=== PATIENT | male | born 1940 | race Caucasian/White ===

== ENCOUNTER 2021-04-24 06:24 | Inpatient (IN) | payer MEDICARE, OTHER ==
[~2021-04-24] VITALS: Ht 162.6 cm; Wt 71.3 kg
--- NOTE | 2021-04-24 06:56 | ED.ADGEN ---
General Adult EDM: Chief Complaint: NEAR SYNCOPE HPI: HPI: Patient is a 80 year old male brought in by EMS after being found laying face down the hallway by staff at his assisted living facility. 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 Patient says nothing hurts via handwriting was unable to answer the last thing he remembers what caused him to fall. Patient is currently taking Eliquis. Per EMS he was at last week but for unknown reason. History of provided by daughter:. Patient has a defibrillator/pacemaker that was placed in 2010 has 1.5 years left on the battery. Patient is a DNR. Patient was returned to his assisted living facility yesterday after staying at and being in rehab after falls due to decreased blood sugar levels. Patient has a history of renal insufficiency and saw his ratings analyst last week. He has a history of ND and multiple strokes greater than 10 years ago. Also is a history of heart failure. 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 Patient is fully vaccinated against COVID-19 Review of Systems: Review of Systems: All other systems within normal limits except for as noted in the HPI Current Medications: Current Medications Medications (Trade) Dose Ordered Sig/Christal Start Time Stop Time Status Last Admin Dose Admin Ondansetron HCl (Zofran) 4 mg 1X ONCE 04/24/21 07:00 04/24/21 07:02 DC 04/24/21 07:38 4 MG Sodium Chloride 1,000 ml @ 1,000 mls/hr 1X ONCE 04/24/21 07:00 04/24/21 07:59 DC 04/24/21 07:38 1,000 MLS/HR Allergies: Allergies: Allergies Coded Allergies Type Severity Reaction Last Updated Verified No Known Drug Allergies 04/24/21 No Physical Exam: PE: Constitutional: Well developed, well nourished, no acute distress, non-toxic appearance. [] HENT: Normocephalic, atraumatic, bilateral external ears normal, nose normal. [] Eyes: PERRLA, conjunctiva normal, no discharge. [] Neck: No rigidity, supple, no stridor. [] Cardiovascular: Regular rate and rhythm, brisk cap refill [] Lungs & Thorax: Non labored symmetric respirations, no tachypnea or respiratory distress [] Abdomen: Soft, nondistended. Skin: Warm, dry, no erythema, no rash. [] Back: Unremarkable Extremities: No deformities, range of motion grossly intact, no lower extremity edema [] Neurologic: Alert and following command, aphasia, no focal deficits noted. [] Psychologic: Affect normal, judgement normal, mood normal. [] Current Patient Data: Labs: Laboratory Tests Test 04/24/21 06:40 White Blood Count 7.7 x10^3/uL (4.0-11.0) Red Blood Count 5.45 x10^6/uL (4.30-5.70) Hemoglobin 14.8 g/dL (13.0-17.5) Hematocrit 45.6 % (39.0-53.0) Mean Corpuscular Volume 84 fL (79-100) Mean Corpuscular Hemoglobin 27 pg (25-35) Mean Corpuscular Hemoglobin Concent 33 g/dL (31-37) Red Cell Distribution Width 16.1 % (11.5-14.5) H Platelet Count 132 x10^3/uL (140-400) L Neutrophils (%) (Auto) 60 % (31-73) Lymphocytes (%) (Auto) 26 % (24-48) Monocytes (%) (Auto) 11 % (0-9) H Eosinophils (%) (Auto) 1 % (0-3) Basophils (%) (Auto) 1 % (0-3) Neutrophils # (Auto) 4.7 x10^3/uL (1.8-7.7) Lymphocytes # (Auto) 2.0 x10^3/uL (1.0-4.8) Monocytes # (Auto) 0.9 x10^3/uL (0.0-1.1) Eosinophils # (Auto) 0.1 x10^3/uL (0.0-0.7) Basophils # (Auto) 0.1 x10^3/uL (0.0-0.2) Prothrombin Time 18.3 SEC (11.7-14.0) H Prothrombin Time INR 1.5 (0.8-1.1) H Sodium Level 136 mmol/L (136-145) Potassium Level 4.2 mmol/L (3.5-5.1) Chloride Level 103 mmol/L (98-107) Carbon Dioxide Level 19 mmol/L (21-32) L Anion Gap 14 (6-14) Blood Urea Nitrogen 27 mg/dL (8-26) H Creatinine 2.0 mg/dL (0.7-1.3) H Estimated GFR (Cockcroft-Gault) 32.3 BUN/Creatinine Ratio 14 (6-20) Glucose Level 277 mg/dL (70-99) H Lactic Acid Level 4.0 mmol/L (0.4-2.0) *H Calcium Level 9.4 mg/dL (8.5-10.1) Phosphorus Level 4.7 mg/dL (2.6-4.7) Magnesium Level 2.2 mg/dL (1.8-2.4) Total Bilirubin 0.6 mg/dL (0.2-1.0) Aspartate Amino Transferase (AST) 34 U/L (15-37) Alanine Aminotransferase (ALT) 38 U/L (16-63) Alkaline Phosphatase 94 U/L (46-116) Creatine Kinase 52 U/L (39-308) Myoglobin 96 ng/mL (16-96) Troponin I Quantitative 0.060 ng/mL (0.000-0.055) MA-Mfa-H-Type Natriuretic Peptide 88372 pg/mL (0-449) H Total Protein 7.0 g/dL (6.4-8.2) Albumin 3.4 g/dL (3.4-5.0) Albumin/Globulin Ratio 0.9 (1.0-1.7) L Laboratory Tests 04/24/21 06:40 Laboratory Tests 04/24/21 06:40 Vital Signs: Vital Signs Date Time Temp Pulse Resp B/P (MAP) Pulse Ox O2 Delivery O2 Flow Rate FiO2 04/24/21 07:46 97.8 97.8 04/24/21 06:41 103 19 124/66 (85) 97 EKG: EKG: Wide-complex paced rhythm with a heart rate of 104. [] Heart Score: C/O Chest Pain: No HEART Score for Chest Pain: HEART Score for Chest Pain Response (Comments) Value History Slighlty/Non-Suspicious 0 ECG Nonspecific Repolarizatio 1 Age > 65 2 Risk Factors >3 Risk Factors or Hx CAD 2 Troponin >1-<3x Normal Limit 1 Total 6 Risk Factors: Risk Factors: DM, Current or recent (<one month) smoker, HTN, HLP, family history of CAD, obesity. Risk Scores: Score 0 - 3: 2.5% MACE over next 6 weeks - Discharge Home Score 4 - 6: 20.3% MACE over next 6 weeks - Admit for Clinical Observation Score 7 - 10: 72.7% MACE over next 6 weeks - Early Invasive Strategies Radiology/Procedures: Radiology/Procedures: [facility] [address] [place] [address] IMAGING REPORT Signed PATIENT: MAUREEN SAM ACCOUNT: [id number] : 1940 LOCATION: ER AGE: 80 SEX: M EXAM STATUS: REG ER ORD. PHYSICIAN: ARNALDO ROCK MD REASON: FALL, POOR HISTORIAN PROCEDURE: PELVIS Exam performed: One view chest and one view pelvis. HISTORY: Fall. DATE OF SERVICE: 04/24/2021. COMPARISON: None available Findings and impression: Single AP supine portable view chest is obtained. Apparent cardiomegaly and central vascular congestion may be accentuated due to supine position. There is a bipolar pacemaker in place. Lungs are well-expanded and clear. No focal infiltrates, effusion or pneumothorax seen. Bones are grossly normal. Single AP view pelvis demonstrates normal alignment of both hip and sacroiliac joints. There is apparent foreshortening of the right femoral neck perhaps positional. There is no acute fracture or dislocation.If there is a concern for fracture, evaluation with CT may be obtained. Nonspecific bowel gas pattern seen. Electronically signed by: Layne Brennan MD (04/24/2021 7:50 AM) [id number] DICTATED and SIGNED BY: LAYNE BRENNAN MD DATE: 04/24/21 [id number] 0 [][facility] [id number] [place] [address] IMAGING REPORT Signed PATIENT: MAUREEN SAM ACCOUNT: [id number] : 1940 LOCATION: ER AGE: 80 SEX: M EXAM STATUS: PRE ER ORD. PHYSICIAN: ARNALDO ROCK MD REASON: FALL, POOR HISTORIAN PROCEDURE: CT HEAD AND CERVICAL SPINE WO CT head without contrast. CT cervical spine without contrast PQRS statement: CT scans at this facility use dose reduction including either automated exposure control, iterative reconstructions, and /or weight based radiation dosing via mA and kV modification when appropriate to reduce radiation dose to as low as reasonably achievable. HISTORY: Fall injury, pain, poor historian. CT head findings: There is mild generalized brain atrophy. Calcified plaque intracranial arteries. No intracranial hemorrhage, mass, hydrocephalus, extra- axial fluid collections or infarction. Orbits, mastoids and bones are unremarkable. IMPRESSION: No acute intracranial abnormality. CT cervical spine findings: Craniocervical junction intact. Cervical vertebral body height and alignment intact. No fracture of the cervical spine. Multilevel cervical disc height loss, soft disc protrusions and disc osteophytes and uncovertebral facet spurring with multilevel spinal canal and neural foraminal stenoses. Lung apices and paraspinal tissues are unremarkable. IMPRESSION: No acute osseous injury of the cervical spine. Cervical disc disease. As described above. Electronically signed by: Rio Slaughter MD (04/24/2021 7:36 AM) [id number] DICTATED and SIGNED BY: RIO SLAUGHTER MD DATE: 04/24/21 [id number] 0 Course & Med Decision Making: Course & Med Decision Making Pertinent Labs and Imaging studies reviewed. (See chart for details) Patient with slightly elevated troponin, on repeat troponin went up to 0.7, discussed Dr. Lawrence will hold heparin at this time and trend troponins. Hospitalist notified and will start heparin [] Dragon Disclaimer: Ernestine Disclaimer: This electronic medical record was generated, in whole or in part, using a voice recognition dictation system. Departure Departure Impression: Primary Impression: Fall Additional Impressions: Hypothermia Lactic acidosis NSTEMI (non-ST elevated myocardial infarction) Disposition: ADMITTED INPATIENT Admitting Physician: EVERTON Condition: CRITICAL Problem Qualifiers ARNALDO ROCK MD Apr 24, 2021 06:56
[2021-04-24] MEDS ORDERED: ONDANSETRON PF 4 MG/2 ML VIAL. IVP ONE (07:00)
[2021-04-24] MEDS ORDERED: IV NORMAL SALINE 1000ML BAG 1,000 ML IV ONE (07:00)
[2021-04-24 07:14] LABS: CALCIUM 9.4 mg/dL (8.5-10.1); GFR 32.3; POTASSIUM 4.2 mmol/L (3.5-5.1)
[2021-04-24 07:16] LABS: BASO # 0.1 x10^3/uL (0.0-0.2); BASO % 1 % (0-3); EOS # 0.1 x10^3/uL (0.0-0.7); EOS % 1 % (0-3); HEMATOCRIT 45.6 % (39.0-53.0); HEMOGLOBIN 14.8 g/dL (13.0-17.5); LYMPH % 26 % (24-48); MEAN CORPUSCULAR HEMOGLOBIN 27 pg (25-35); MEAN CORPUSCULAR HGB CONC 33 g/dL (31-37); MEAN CORPUSCULAR VOLUME 84 fL (79-100); MONO # 0.9 x10^3/uL (0.0-1.1); MONO % 11 % (0-9); NEUT # 4.7 x10^3/uL (1.8-7.7); NEUT % 60 % (31-73); PLATELET COUNT 132 x10^3/uL (140-400); RED BLOOD COUNT 5.45 x10^6/uL (4.30-5.70); RED CELL DISTRIBUTION WIDTH 16.1 % (11.5-14.5); WHITE BLOOD COUNT 7.7 x10^3/uL (4.0-11.0)
[2021-04-24 07:17] LABS: ALBUMIN 3.4 g/dL (3.4-5.0); ALBUMIN/GLOBULIN RATIO 0.9 (1.0-1.7); MAGNESIUM 2.2 mg/dL (1.8-2.4); PHOSPHORUS 4.7 mg/dL (2.6-4.7); TOTAL BILIRUBIN 0.6 mg/dL (0.2-1.0)
[2021-04-24 07:27] LABS: PROTHROMBIN TIME PATIENT 18.3 SEC (11.7-14.0)
--- NOTE | 2021-04-24 07:38 | RAD ---
CT head without contrast. CT cervical spine without contrast PQRS statement: CT scans at this facility use dose reduction including either automated exposure cont rol, iterative reconstructions, and /or weight based radiation dosing via mA and kV modification when appropriate to reduce radiation dose to as low as reasonably achievable. HISTORY: Fall injury, pain, poor historian. CT head findings: There is mild generalized brain atrophy. Calcified plaque intracranial arteries. No intracranial hemorrhage, mass, hydrocephalus, extra-axial fluid collections or infarction. Orbits, m astoids and bones are unremarkable. IMPRESSION: No acute intracranial abnormality. CT cervical spine findings: Craniocervical junction intact. Cervical vertebral body height and alignm ent intact. No fracture of the cervical spine. Multilevel cervical disc height loss, soft disc protru sions and disc osteophytes and uncovertebral facet spurring with multilevel spinal canal and neural f oraminal stenoses. Lung apices and paraspinal tissues are unremarkable. IMPRESSION: No acute osseous injury of the cervical spine. Cervical disc disease. As described above. Electronically signed by: Jules Slaughter MD (04/24/2021 7:36 AM) [id number]
--- NOTE | 2021-04-24 07:53 | RAD ---
Exam performed: One view chest and one view pelvis. HISTORY: Fall. DATE OF SERVICE: 04/24/2021. COMPARISON: None available Findings and impression: Single AP supine portable view chest is obtained. Apparent cardiomegaly and central vascular congesti on may be accentuated due to supine position. There is a bipolar pacemaker in place. Lungs are well-e xpanded and clear. No focal infiltrates, effusion or pneumothorax seen. Bones are grossly normal. Single AP view pelvis demonstrates normal alignment of both hip and sacroiliac joints. There is appar ent foreshortening of the right femoral neck perhaps positional. There is no acute fracture or disloc ation.If there is a concern for fracture, evaluation with CT may be obtained. Nonspecific bowel gas pattern seen. Electronically signed by: Layne Brennan MD (04/24/2021 7:50 AM) [id number]
[2021-04-24] MEDS ORDERED: MORPHINE SULFATE 4 MG/ML INJ. IVP PRN (08:45)
[2021-04-24] MEDS ORDERED: ONDANSETRON PF 4 MG/2 ML VIAL. IVP PRN ×6 (08:45→09:15)
[2021-04-24] MEDS ORDERED: ACETAMINOPHEN 325 MG TABLET. PO PRN ×6 (08:45→09:15)
--- NOTE | 2021-04-24 09:03 | PDOC1 ---
History and Physical Date of Admission Date of Admission DATE: 04/24/21 TIME: 08:37 Identification/Chief Complaint Chief Complaint Fall Source Source: Caregiver, Chart review History of Present Illness History of Present Illness Patient is a 80-year-old male with past medical history DM2, HTN, history bipolar pacemaker, who presents to the ED after being found unresponsive in the hallway of his [facility]. Patient is deaf and hard of hearing, so much history is obtained through chart review. Upon EMS arrival he was hypothermic at 94.6 F and hypotensive with blood pressure 70/50 mmHg. Upon arrival in the ED there were no obvious injuries or deformities noted. He was treated with warming blankets with improvement. Labs on admission showed platelet 132, BUN 27, creatinine 2.0, CBG 277, lactic acid 4.0, troponin 0.060, BNP 15,364. Patient is on Eliquis and CT head/cervical spine showed no acute abnormality. Chest x-ray and hip x-ray showed apparent cardiomegaly with central vascular congestion, bipolar pacemaker in place, normal alignment of both hip and sacral joints, apparent shortening of the right femoral neck which is perhaps positional, no acute fracture or dislocation. Case was discussed with Dr. Rock in the ED, will obtain CT chest and abdomen given abnormal chest x-ray and history of blood thinner use. Discussed with daughter (DEXTER) who states that patient was recently discharged from to rehab after being treated for episodes of hypoglycemia. He had an ICD/pacemaker placed in 2010. Daughter notes history of "kidney problems ", PR with no stents, CVA, and she states he is fully vaccinated against COVID-19. She confirms that his CODE STATUS is DNR. Will admit patient for further medical management. Past Medical History Past Medical History DM2, HTN, hypothyroidism, HLD, CVA, pacemaker/defibrillator, CKD, PR Past Surgical History Past Surgical History Pacemaker/ICD Family History Family History: Hypertension Social History Smoke: No ALCOHOL: none Drugs: None Current Medications Current Medications Current Medications Sodium Chloride 1,000 ml @ 1,000 mls/hr 1X ONCE IV Last administered on 04/24/21at 07:38; Start 04/24/21 at 07:00; Stop 04/24/21 at 07:59; Status DC Ondansetron HCl (Zofran) 4 mg 1X ONCE IVP Last administered on 04/24/21at 07:38; Start 04/24/21 at 07:00; Stop 04/24/21 at 07:02; Status DC Allergies Allergies: Coded Allergies: No Known Drug Allergies (Unverified , 04/24/21) ROS Review of System Unable to obtain due to clinical condition Physical Exam Physical Exam General: Alert, Cooperative, No acute distress HEENT: PERRLA, EOMI Lungs: Clear to auscultation, Normal air movement Heart: Tachycardic, pacer/ICD the left chest wall Cardiovascular: S1, S2 Abdomen: Normal bowel sounds, Soft, No tenderness Extremities: No clubbing, No cyanosis. Left hand fingers 2 through 5 absent. Skin: No rashes, No significant lesion Neuro: Normal tone, Sensation intact Psych/Mental Status: Mental status NL, Mood NL Vitals Vitals Vital Signs Date Time Temp Pulse Resp B/P (MAP) Pulse Ox O2 Delivery O2 Flow Rate FiO2 04/24/21 07:46 97.8 97.8 04/24/21 06:41 103 19 124/66 (85) 97 Labs Labs Laboratory Tests Test 04/24/21 06:40 White Blood Count 7.7 x10^3/uL (4.0-11.0) Red Blood Count 5.45 x10^6/uL (4.30-5.70) Hemoglobin 14.8 g/dL (13.0-17.5) Hematocrit 45.6 % (39.0-53.0) Mean Corpuscular Volume 84 fL (79-100) Mean Corpuscular Hemoglobin 27 pg (25-35) Mean Corpuscular Hemoglobin Concent 33 g/dL (31-37) Red Cell Distribution Width 16.1 % (11.5-14.5) Platelet Count 132 x10^3/uL (140-400) Neutrophils (%) (Auto) 60 % (31-73) Lymphocytes (%) (Auto) 26 % (24-48) Monocytes (%) (Auto) 11 % (0-9) Eosinophils (%) (Auto) 1 % (0-3) Basophils (%) (Auto) 1 % (0-3) Neutrophils # (Auto) 4.7 x10^3/uL (1.8-7.7) Lymphocytes # (Auto) 2.0 x10^3/uL (1.0-4.8) Monocytes # (Auto) 0.9 x10^3/uL (0.0-1.1) Eosinophils # (Auto) 0.1 x10^3/uL (0.0-0.7) Basophils # (Auto) 0.1 x10^3/uL (0.0-0.2) Prothrombin Time 18.3 SEC (11.7-14.0) Prothromb Time International Ratio 1.5 (0.8-1.1) Sodium Level 136 mmol/L (136-145) Potassium Level 4.2 mmol/L (3.5-5.1) Chloride Level 103 mmol/L (98-107) Carbon Dioxide Level 19 mmol/L (21-32) Anion Gap 14 (6-14) Blood Urea Nitrogen 27 mg/dL (8-26) Creatinine 2.0 mg/dL (0.7-1.3) Estimated GFR (Cockcroft-Gault) 32.3 BUN/Creatinine Ratio 14 (6-20) Glucose Level 277 mg/dL (70-99) Lactic Acid Level 4.0 mmol/L (0.4-2.0) Calcium Level 9.4 mg/dL (8.5-10.1) Phosphorus Level 4.7 mg/dL (2.6-4.7) Magnesium Level 2.2 mg/dL (1.8-2.4) Total Bilirubin 0.6 mg/dL (0.2-1.0) Aspartate Amino Transf (AST/SGOT) 34 U/L (15-37) Alanine Aminotransferase (ALT/SGPT) 38 U/L (16-63) Alkaline Phosphatase 94 U/L (46-116) Creatine Kinase 52 U/L (39-308) Myoglobin 96 ng/mL (16-96) Troponin I Quantitative 0.060 ng/mL (0.000-0.055) DQ-Bsk-Z-Type Natriuretic Peptide 59668 pg/mL (0-449) Total Protein 7.0 g/dL (6.4-8.2) Albumin 3.4 g/dL (3.4-5.0) Albumin/Globulin Ratio 0.9 (1.0-1.7) Laboratory Tests Test 04/24/21 06:40 White Blood Count 7.7 x10^3/uL (4.0-11.0) Red Blood Count 5.45 x10^6/uL (4.30-5.70) Hemoglobin 14.8 g/dL (13.0-17.5) Hematocrit 45.6 % (39.0-53.0) Mean Corpuscular Volume 84 fL (79-100) Mean Corpuscular Hemoglobin 27 pg (25-35) Mean Corpuscular Hemoglobin Concent 33 g/dL (31-37) Red Cell Distribution Width 16.1 % (11.5-14.5) Platelet Count 132 x10^3/uL (140-400) Neutrophils (%) (Auto) 60 % (31-73) Lymphocytes (%) (Auto) 26 % (24-48) Monocytes (%) (Auto) 11 % (0-9) Eosinophils (%) (Auto) 1 % (0-3) Basophils (%) (Auto) 1 % (0-3) Neutrophils # (Auto) 4.7 x10^3/uL (1.8-7.7) Lymphocytes # (Auto) 2.0 x10^3/uL (1.0-4.8) Monocytes # (Auto) 0.9 x10^3/uL (0.0-1.1) Eosinophils # (Auto) 0.1 x10^3/uL (0.0-0.7) Basophils # (Auto) 0.1 x10^3/uL (0.0-0.2) Prothrombin Time 18.3 SEC (11.7-14.0) Prothromb Time International Ratio 1.5 (0.8-1.1) Sodium Level 136 mmol/L (136-145) Potassium Level 4.2 mmol/L (3.5-5.1) Chloride Level 103 mmol/L (98-107) Carbon Dioxide Level 19 mmol/L (21-32) Anion Gap 14 (6-14) Blood Urea Nitrogen 27 mg/dL (8-26) Creatinine 2.0 mg/dL (0.7-1.3) Estimated GFR (Cockcroft-Gault) 32.3 BUN/Creatinine Ratio 14 (6-20) Glucose Level 277 mg/dL (70-99) Lactic Acid Level 4.0 mmol/L (0.4-2.0) Calcium Level 9.4 mg/dL (8.5-10.1) Phosphorus Level 4.7 mg/dL (2.6-4.7) Magnesium Level 2.2 mg/dL (1.8-2.4) Total Bilirubin 0.6 mg/dL (0.2-1.0) Aspartate Amino Transf (AST/SGOT) 34 U/L (15-37) Alanine Aminotransferase (ALT/SGPT) 38 U/L (16-63) Alkaline Phosphatase 94 U/L (46-116) Creatine Kinase 52 U/L (39-308) Myoglobin 96 ng/mL (16-96) Troponin I Quantitative 0.060 ng/mL (0.000-0.055) IV-Dyn-O-Type Natriuretic Peptide 54917 pg/mL (0-449) Total Protein 7.0 g/dL (6.4-8.2) Albumin 3.4 g/dL (3.4-5.0) Albumin/Globulin Ratio 0.9 (1.0-1.7) Images Images PATIENT: MAUREEN SAM ACCOUNT: [id number] : 1940 LOCATION: ER AGE: 80 SEX: M EXAM STATUS: PRE ER ORD. PHYSICIAN: ARNALDO ROCK MD REASON: FALL, POOR HISTORIAN PROCEDURE: CT HEAD AND CERVICAL SPINE WO CT head without contrast. CT cervical spine without contrast PQRS statement: CT scans at this facility use dose reduction including either automated exposure control, iterative reconstructions, and /or weight based radiation dosing via mA and kV modification when appropriate to reduce radiation dose to as low as reasonably achievable. HISTORY: Fall injury, pain, poor historian. CT head findings: There is mild generalized brain atrophy. Calcified plaque intracranial arteries. No intracranial hemorrhage, mass, hydrocephalus, extra- axial fluid collections or infarction. Orbits, mastoids and bones are unr emarkable. IMPRESSION: No acute intracranial abnormality. CT cervical spine findings: Craniocervical junction intact. Cervical vertebral body height and alignment intact. No fracture of the cervical spine. Multilevel cervical disc height loss, soft disc protrusions and disc osteophytes and uncovertebral facet spurring with multilevel spinal canal and neural foraminal stenoses. Lung apices and paraspinal tissues are unremarkable. IMPRESSION: No acute osseous injury of the cervical spine. Cervical disc di sease. As described above. PATIENT: MAUREEN SAM ACCOUNT: [id number] : 1940 LOCATION: ER AGE: 80 SEX: M EXAM STATUS: REG ER ORD. PHYSICIAN: ARNALDO ROCK MD REASON: FALL, POOR HISTORIAN PROCEDURE: CHEST AP ONLY Exam performed: One view chest and one view pelvis. HISTORY: Fall. DATE OF SERVICE: 04/24/2021. COMPARISON: None available Findings and impression: Single AP supine portable view chest is obtained. Apparent cardiomegaly and central vascular congestion may be accentuated due to supine position. There is a bipolar pacemaker in place. Lungs are well-expanded and clear. No focal infiltrates, effusion or pneumothorax seen. Bones are grossly normal. Single AP view pelvis demonstrates normal alignment of both hip and sacroiliac joints. There is apparent foreshortening of the right femoral neck perhaps positional. There is no acute fracture or dislocation.If there is a concern for fracture, evaluation with CT may be obtained. Nonspecific bowel gas pattern seen. VTE Prophylaxis Ordered VTE Prophylaxis Devices: No VTE Pharmacological Prophylaxi: Yes Assessment/Plan Assessment/Plan NSTEMI Fall/near syncope Lactic acidosis Hypothermia Acute on chronic renal failure DM2 with hyperglycemia History CVA History PR Plan: During the course of my evaluation repeat troponin 0.716 Consultation placed to cardiology Discussed with Dr. Rock, will obtain CT chest and abdomen We will place order to have pacemaker interrogated Discussed with DPOA, she believes he may have gotten overzealous after recently being released from the hospital, tried to walk and had a fall in his detention. She states she is unsure why he is on Eliquis, but she presumes it is for his heart or history of strokes. Will provide judicious IV fluids and monitor kidney function given unknown baseline Follow-up reflex lactic acid Basal/prandial insulin Resume home medications FEN - Cardiac diet PPX - Eliquis DNR Dispo - inpatient for above Patient's daughter (Leeanna Martin) is surrogate decision-maker Justifications for Admission Other Justification ARUN EPPS MD Apr 24, 2021 09:03
[2021-04-24] MEDS ORDERED: DEXTROSE 50% 25 GM / 50ML DISP.SYRIN. IV PRN (09:15)
[2021-04-24] MEDS ORDERED: CALCIUM CARBONATE 500 MG TAB.CHEW PO PRN ×5 (09:15)
[2021-04-24] MEDS ORDERED: MAGNESIUM HYDROXIDE 2,400 MG/30 ML ORAL.SUSP. PO PRN ×5 (09:15)
[2021-04-24] MEDS ORDERED: MORPHINE SULFATE 2 MG/ML INJ. IV PRN ×5 (09:15)
[2021-04-24] MEDS ORDERED: HYDROcodone/APAP 5/325MG 1 TAB TABLET PO PRN ×5 (09:15)
[2021-04-24] MEDS ORDERED: MAG HYDROX/ALUMINUM HYD/SIMETH 30 ML ORAL.SUSP PO PRN ×5 (09:15)
--- NOTE | 2021-04-24 09:25 | RAD ---
INDICATION: Status post fall COMPARISON: None. TECHNIQUE: Axial CT images obtained through the chest, abdomen and pelvis without contrast. One or more of the following individualized dose reduction techniques were utilized for this examinat ion: 1. Automated exposure control; 2. Adjustment of the mA and/or kV according to patient size; 3 . Use of iterative reconstruction technique. FINDINGS: Small bilateral pleural effusion. Mild patchy groundglass and interstitial opacities. Severe calcific atherosclerosis of the coronary arteries and thoracic aorta. Pacemaker is seen. Small fluid in the pericardial recess which is a common finding. Pulmonary arteries prominent in size. For example main pulmonary arteries 41 mm. Multiple compression fractures are identified including mild T10, moderate T11, mild T12, mild to mod erate L1. Severe calcific atherosclerosis. Small fat-containing umbilical hernia. Small left-sided fat-containing inguinal hernia. Calcified granulomas of the liver and spleen. Gallbl adder is partially contracted with some mild indistinctness to the adjacent fat although this could b e from motion. No peripancreatic fluid collection. Atrophic kidneys. Bilateral low-density renal lesions are seen and may be cystic in nature but limited evaluation given lack of contrast. Cannot assess for a solid component on noncontrast imaging. Urinary bladder is partially distended. Colonic diverticulosis. No dilated loops of bowel to suggest obstruction. Degenerative changes of the spine. IMPRESSION: * Limited assessment of solid organ structures and vasculature given lack of intravenous contrast bu t no intra-abdominal or intrathoracic hemorrhage is identified. * Compression fractures are identified at T10, T11, T12 and L1 without comparison available for revi ew to assess whether these are chronic or acute. Would correlate with symptoms. * Mild interstitial and groundglass opacities bilaterally with small pleural effusions. This can be seen with mild edema with small airway inflammation from pneumonitis not excluded. * Severe atherosclerotic disease. Electronically signed by: Kamron Richmond MD (04/24/2021 9:23 AM) [id number]
[2021-04-24] MEDS: IV NORMAL SALINE 1000ML BAG 1,000 ML IV SCH ×2 (11:29→18:45)
[2021-04-24] MEDS: INSULIN LISPRO 300 UNITS/3 ML VIAL. SQ SCH ×2 (11:58→17:00)
--- NOTE | 2021-04-24 15:07 | EKG ---
[facility] [address] [place] [address] Test Date: 2021-04-24 Test Time: 07:33:54 Pat Name: MAUREEN SAM Department: Room: ED HOLD 2 Gender: M Respiratory Physician: = : 1940 Requested By: ARNALDO ROCK Order Number: [id number] Reading MD: Ez Lawrence Measurements Intervals [place] Rate: 104 P: WI: QRS: 196 QRSD: 48 T: 236 QT: 324 QTc: 426 Interpretive Statements VENTRICULAR PACED RHYTHM Electronically Signed On 04-28-2021 12:49:22 CDT by Ez Lawrence
[2021-04-24] MEDS ORDERED: HEPARIN for IV BOLUS 10,000 UNIT/10 ML VIAL. IV PRN ×2 (16:15→23:45)
[2021-04-24] MEDS ORDERED: HEPARIN 25,000UTS/250ML PREMIX 250 ML IV PRN (16:15)
[2021-04-24] MEDS ORDERED: ASPI-630 PO (18:59)
[2021-04-24] MEDS ORDERED: ATOR20TA58 PO (18:59)
[2021-04-24] MEDS ORDERED: APIX2.5T PO (19:01)
[2021-04-24] MEDS ORDERED: CARV25TA PO (19:01)
[2021-04-24] MEDS ORDERED: LEVO75TA5 PO (19:02)
[2021-04-24] MEDS ORDERED: FURO20TA3 PO (19:02)
[2021-04-24] MEDS ORDERED: LISI20TA18 PO (19:03)
[2021-04-24] MEDS ORDERED: POTA20TA4 PO (19:03)
[2021-04-24] MEDS ORDERED: LIRA0.6P2 SQ (19:04)
[2021-04-24] MEDS ORDERED: Vitamin D PO (19:07)
[2021-04-24] MEDS ORDERED: INSU100I27 SQ (19:08)
[2021-04-24] MEDS ORDERED: INSU100I17 SQ (19:09)
[2021-04-24 19:50] VITALS: BP 123/87
[2021-04-24] MEDS ORDERED: ATORVASTATIN CALCIUM 20 MG TABLET PO SCH (22:00)
[2021-04-24 23:45] VITALS: BP 102/67
[2021-04-24] MEDS: INSULIN GLARGINE SYRINGE. SQ SCH (23:47)
[2021-04-25 03:35] VITALS: BP 105/73
[2021-04-25] MEDS: IV NORMAL SALINE 1000ML BAG 1,000 ML IV SCH (04:45)
[2021-04-25 05:47] LABS: BASO % 0 % (0-3); EOS % 0 % (0-3); HEMATOCRIT 42.3 % (39.0-53.0); HEMOGLOBIN 13.8 g/dL (13.0-17.5); LYMPH # 1.5 x10^3/uL (1.0-4.8); LYMPH % 18 % (24-48); MEAN CORPUSCULAR HEMOGLOBIN 27 pg (25-35); MEAN CORPUSCULAR HGB CONC 33 g/dL (31-37); MEAN CORPUSCULAR VOLUME 84 fL (79-100); MONO # 0.8 x10^3/uL (0.0-1.1); MONO % 10 % (0-9); NEUT # 5.9 x10^3/uL (1.8-7.7); NEUT % 72 % (31-73); PLATELET COUNT 107 x10^3/uL (140-400); RED BLOOD COUNT 5.03 x10^6/uL (4.30-5.70); RED CELL DISTRIBUTION WIDTH 16.3 % (11.5-14.5); WHITE BLOOD COUNT 8.3 x10^3/uL (4.0-11.0)
[2021-04-25 06:08] LABS: ALBUMIN 3.1 g/dL (3.4-5.0); ALBUMIN/GLOBULIN RATIO 0.9 (1.0-1.7); CREATININE 1.7 mg/dL (0.7-1.3); POTASSIUM 3.9 mmol/L (3.5-5.1); TOTAL BILIRUBIN 0.6 mg/dL (0.2-1.0); TOTAL PROTEIN 6.4 g/dL (6.4-8.2)
[2021-04-25 07:00] VITALS: BP 121/76
[2021-04-25] MEDS: INSULIN LISPRO 300 UNITS/3 ML VIAL. SQ SCH ×4 (08:00→17:37)
[2021-04-25] MEDS: ASPIRIN CHEWABLE 81 MG TABLET. PO SCH (08:44)
[2021-04-25] MEDS: CARVEDILOL 12.5 MG TABLET. PO SCH ×2 (08:44→17:27)
[2021-04-25] MEDS: LEVOTHYROXINE 75 MCG TABLET PO SCH (08:45)
[2021-04-25] MEDS: POTASSIUM CHLORIDE 20 MEQ TABLET.ER. PO SCH (08:45)
[2021-04-25] MEDS: FUROSEMIDE 20 MG TABLET PO SCH (08:45)
[2021-04-25] MEDS: LISINOPRIL 20 MG TABLET PO SCH (08:45)
[2021-04-25 10:47] VITALS: BP 112/75
--- NOTE | 2021-04-25 12:12 | PDOC2 ---
DELPHINE JEFFERSON ELEMENTARY LIBRARIAN 04/25/21 1212: CARDIAC CONSULT DATE OF CONSULT Date of Consult DATE: 04/25/21 TIME: 12:09 REASON FOR CONSULT Reason for Consult: syncope CHF REFERRING PHYSICIAN Referring Physician: Dr. Brand SOURCE Source: Chart review, Patient HISTORY OF PRESENT ILLNESS HISTORY OF PRESENT ILLNESS This is an 80 yo male who presented form nursing facility secondary to being found down in hallway. Details of fall unknown. Patient presently denies falling and is unable to tell me what brought him into the ED. Troponin noted to be elevated, which prompted this consult. He denies any dizziness, diaphoresis, or chest pain. PAST MEDICAL HISTORY Cardiovascular: AFIB, CAD, CHF, HTN, Hyperlipidemia CENTRAL NERVOUS SYSTEM: CVA, Other ([facility] [facility]) Renal/: Chronic renal insuff, Other (urgency ) Endocrine: Diabetes, Hypothyroidism PAST SURGICAL HISTORY Past Surgical History: Pacemaker (AICD ) SOCIAL HISTORY ALCOHOL: none Drugs: None [facility] CURRENT MEDICATIONS CURRENT MEDICATIONS Current Medications Medications (Trade) Dose Ordered Sig/Christal Route PRN Reason Start Time Stop Time Status Last Admin Dose Admin Insulin Glargine (Lantus Syringe) 8 unit QHS SQ 04/24/21 21:00 04/24/21 23:47 Heparin Sodium/ Dextrose 250 ml @ 6 mls/hr CONT PRN IV PER PROTOCOL 04/24/21 16:15 04/24/21 23:45 DC 04/24/21 16:47 Heparin Sodium (Porcine) (Heparin Sodium) 1,250 unit PRN Q6HRS PRN IV FOR UFH LEVEL LESS THAN 0.2 04/24/21 16:15 04/24/21 23:45 DC 04/24/21 16:48 Aspirin (Aspirin Chewable) 81 mg DAILY08 PO 04/25/21 08:00 04/25/21 08:44 Atorvastatin Calcium (Lipitor) 20 mg HS PO 04/24/21 22:00 04/24/21 23:47 Furosemide (Lasix) 20 mg DAILY PO 04/25/21 09:00 04/25/21 08:45 Levothyroxine Sodium (Synthroid) 75 mcg DAILYAC PO 04/25/21 07:30 04/25/21 08:45 Lisinopril (Prinivil) 20 mg DAILY PO 04/25/21 09:00 04/25/21 08:45 Potassium Chloride (Klor-Con) 20 meq DAILY08 PO 04/25/21 08:00 04/25/21 08:45 Carvedilol (Coreg) 37.5 mg BIDWMEALS PO 04/25/21 08:00 04/25/21 08:44 ALLERGIES ALLERGIES: Coded Allergies: No Known Drug Allergies (Unverified , 04/24/21) ROS Review of System 14 point ROS conducted with pertinent positives noted above in hPI PHYSICAL EXAM General: Alert, Cooperative, No acute distress HEENT: Atraumatic Lungs: Clear to auscultation Heart: Regular rate Abdomen: Soft Extremities: No edema, Normal pulses Neuro: Normal speech, Sensation intact Psych/Mental Status: Mood NL MUSCULOSKELETAL: Osteoarthritic changes both hands VITALS/I&O VITALS/I&O: Vital Signs Date Time Temp Pulse Resp B/P (MAP) Pulse Ox O2 Delivery O2 Flow Rate FiO2 04/25/21 10:47 98.1 88 16 112/75 (87) 96 Nasal Cannula 2.0 98.1 I & O 04/24/21 04/24/21 04/25/21 15:00 23:00 07:00 Intake Total 1000 ml 580 ml 700 ml Output Total 100 ml 300 ml Balance 1000 ml 480 ml 400 ml LABS Lab: Laboratory Tests Test 04/24/21 14:40 04/24/21 17:10 04/24/21 21:15 04/24/21 21:41 Lactic Acid Level 1.5 mmol/L (0.4-2.0) Troponin I Quantitative 2.525 ng/mL (0.000-0.055) Glucose (Fingerstick) 165 mg/dL (70-99) H 144 mg/dL (70-99) H Activated Partial Thromboplast Time 66 SEC (24-38) H Test 04/25/21 05:14 04/25/21 07:32 04/25/21 11:20 White Blood Count 8.3 x10^3/uL (4.0-11.0) Red Blood Count 5.03 x10^6/uL (4.30-5.70) Hemoglobin 13.8 g/dL (13.0-17.5) Hematocrit 42.3 % (39.0-53.0) Mean Corpuscular Volume 84 fL (79-100) Mean Corpuscular Hemoglobin 27 pg (25-35) Mean Corpuscular Hemoglobin Concent 33 g/dL (31-37) Red Cell Distribution Width 16.3 % (11.5-14.5) H Platelet Count 107 x10^3/uL (140-400) L Neutrophils (%) (Auto) 72 % (31-73) Lymphocytes (%) (Auto) 18 % (24-48) L Monocytes (%) (Auto) 10 % (0-9) H Eosinophils (%) (Auto) 0 % (0-3) Basophils (%) (Auto) 0 % (0-3) Neutrophils # (Auto) 5.9 x10^3/uL (1.8-7.7) Lymphocytes # (Auto) 1.5 x10^3/uL (1.0-4.8) Monocytes # (Auto) 0.8 x10^3/uL (0.0-1.1) Eosinophils # (Auto) 0.0 x10^3/uL (0.0-0.7) Basophils # (Auto) 0.0 x10^3/uL (0.0-0.2) Activated Partial Thromboplast Time 59 SEC (24-38) H Sodium Level 141 mmol/L (136-145) Potassium Level 3.9 mmol/L (3.5-5.1) Chloride Level 107 mmol/L (98-107) Carbon Dioxide Level 25 mmol/L (21-32) Anion Gap 9 (6-14) Blood Urea Nitrogen 23 mg/dL (8-26) Creatinine 1.7 mg/dL (0.7-1.3) H Estimated GFR (Cockcroft-Gault) 39.0 BUN/Creatinine Ratio 14 (6-20) Glucose Level 141 mg/dL (70-99) H Calcium Level 9.0 mg/dL (8.5-10.1) Total Bilirubin 0.6 mg/dL (0.2-1.0) Aspartate Amino Transferase (AST) 36 U/L (15-37) Alanine Aminotransferase (ALT) 33 U/L (16-63) Alkaline Phosphatase 79 U/L (46-116) Total Protein 6.4 g/dL (6.4-8.2) Albumin 3.1 g/dL (3.4-5.0) L Albumin/Globulin Ratio 0.9 (1.0-1.7) L Glucose (Fingerstick) 168 mg/dL (70-99) H 170 mg/dL (70-99) H Laboratory Tests 04/25/21 05:14 Laboratory Tests 04/25/21 05:14 ECHOCARDIOGRAM ECHOCARDIOGRAM 04/13/21 - 2D + DOPPLER ECHO Interpretation Summary The left ventricle is moderately dilated with moderate eccentric LVH. Moderate LV systolic dysfunction. Regional wall motion abnormalities particularly affecting the apex as depicted in the diagram below. Grade II (Moderate) LV diastolic dysfunction. The right ventricle is normal in size and systolic function. Both atria are normal in size. Device lead was noted in the right sided chambers. Mitral annular calcification and non-specific thickening of mitral leaflets without stenosis. Moderate mitral regurgitation. Mild tricuspid and pulmonic regurgitation. Estimated PASP=55 mmHg Aortic valve is scleortic and clacified with restricted leaflet excursion without significant stenosis. Trace aortic regurgitation. No pericardial effusion. LVEF 35% When compared with prior study dated 04/24/2019, there is interval worsening of the mitral regurgitation now moderate in severity. There is increase in the estimated pulmonary artery peak systolic pressure now estimated at 55 mmHg. The biventricular systolic function appears grossly unchanged. The wall motion abnormalities are better delineated on today's study with use of Definity. HEART CATH HEART CATH CATH REPORT DATE: 06/18/2006 IMPRESSIONS: 1. Coronary artery disease. Patient with 100% occluded right coronary artery and mid LAD. Left circumflex has moderate disease and 50% stenosis in the mid segment. The mid and distal LAD are filling via collaterals. 2. Severely depressed left ventricular systolic function, ejection fraction 15%. RECOMMENDATIONS: Medical management of patient's coronary artery disease. ASSESSMENT/PLAN ASSESSMENT/PLAN 1. Fall; details unclear 2. NSTEMI; trop highest 2.5. CP free 3. Acute on chronic systolic CHF; recent echo with LVEF 35% 4. Cardiomyopathy; s/p AICD (Medtronic) 5. CAD; cath 2005 with SALES AND MARKETING DIRECTOR of RCA and mid LAD. Mid to distal LAD filling via left to left collaterals from the LCx. managed medically. Follows with [facility] 6. Hypertension; controlled 7. Hyperlipidemia; statin 8. H/o CVA 8. Diabetes, II 10. Hypothyroidism 11. Thrombocytopenia 12. Lactic acidosis Recommendations Trend troponin Lipids Continue heparin gtt. Device interrogation Check orthos Continue secondary prevention measures. ASA, statin, BB HF optimization with Lasix, BB, ACEi Consider further ischemic evaluation Will need to determine goals of care Further pending above NICK MEJIA MD 04/25/21 1645: CARDIAC CONSULT ASSESSMENT/PLAN ASSESSMENT/PLAN Patient seen and examined I agree with our nurse practitioners assessment and plan. NSTEMI; trop highest 2.5. CP free. On heparin. Trending troponin. Acute on chronic systolic CHF; recent echo with LVEF 35% Cardiomyopathy; s/p AICD (Medtronic). Interrogating device. CAD; cath 2005 with SALES AND MARKETING DIRECTOR of RCA and mid LAD. Mid to distal LAD filling via left to left collaterals from the LCx. managed medically. Follows with [facility] Hypertension; controlled Hyperlipidemia; statin H/o CVA Diabetes, II DELPHINE JEFFERSON APRN Apr 25, 2021 12:12 NICK MEJIA MD Apr 25, 2021 16:45
--- NOTE | 2021-04-25 12:14 | NUR ---
SS following for discharge planning. SS reviewed pt chart and discussed with pt RN. Pt is from [facility], ; fax [phone]. COVID19 negative. PT ordered. Pt is currently on room air. Cardiology consulted. Pt on Heparin drip. SS will continue to follow for discharge planning.
--- NOTE | 2021-04-25 14:16 | PDOC ---
[employer] PROGRESS NOTE Date of Service DOS: DATE: 04/25/21 TIME: 14:12 Chief Complaint Chief Complaint Fall History of Present Illness History of Present Illness Patient is a 80-year-old male with past medical history DM2, HTN, history bipolar pacemaker, who presents to the ED after being found unresponsive in the hallway of his [facility] correction. Patient is deaf and hard of hearing, so much history is obtained through chart review. Upon EMS arrival he was hypothermic at 94.6 F and hypotensive with blood pressure 70/50 mmHg. Upon arrival in the ED there were no obvious injuries or deformities noted. He was treated with warming blankets with improvement. Labs on admission showed platelet 132, BUN 27, creatinine 2.0, CBG 277, lactic acid 4.0, troponin 0.060, BNP 15,364. Patient is on Eliquis and CT head/cervical spine showed no acute abnormality. Chest x-ray and hip x-ray showed apparent cardiomegaly with central vascular congestion, bipolar pacemaker in place, normal alignment of both hip and sacral joints, apparent shortening of the right femoral neck which is perhaps positional, no acute fracture or dislocation. Case was discussed with Dr. Brand in the ED, will obtain CT chest and abdomen given abnormal chest x-ray and history of blood thinner use. Discussed with daughter (DPOA) who states that patient was recently discharged from to rehab after being treated for episodes of hypoglycemia. He had an ICD/pacemaker placed in 2010. Daughter notes history of "kidney problems ", NC with no stents, CVA, and she states he is fully vaccinated against COVID-19. She confirms that his CODE STATUS is DNR. Will admit patient for further medical management. 04/25 Evaluated at bedside, appears improved from documentation from yesterday. No longer hypothermic. Lactic acidosis has improved. Blood culture showing 1 of 4 gram-positive cocci in pairs and chains. Suspect contaminant will await further results. Otherwise no major changes. Cards consulted. Vitals/I&O Vitals/I&O: Vital Signs Date Time Temp Pulse Resp B/P (MAP) Pulse Ox O2 Delivery O2 Flow Rate FiO2 04/25/21 10:47 98.1 88 16 112/75 (87) 96 Nasal Cannula 2.0 98.1 I & O 04/24/21 04/24/21 04/25/21 15:00 23:00 07:00 Intake Total 1000 ml 580 ml 700 ml Output Total 100 ml 300 ml Balance 1000 ml 480 ml 400 ml Physical Exam General: Alert, Oriented X3, Cooperative Heart: Regular rate, Normal S1, Normal S2 Lungs: Clear Abdomen: Normal bowel sounds, Soft, No tenderness Extremities: No edema, Normal pulses Skin: No significant lesion Labs Labs: Laboratory Tests Test 04/24/21 14:40 04/24/21 17:10 04/24/21 21:15 04/24/21 21:41 Lactic Acid Level 1.5 mmol/L (0.4-2.0) Troponin I Quantitative 2.525 ng/mL (0.000-0.055) Glucose (Fingerstick) 165 mg/dL (70-99) 144 mg/dL (70-99) Activated Partial Thromboplast Time 66 SEC (24-38) Test 04/25/21 05:14 04/25/21 07:32 04/25/21 11:20 04/25/21 13:20 White Blood Count 8.3 x10^3/uL (4.0-11.0) Red Blood Count 5.03 x10^6/uL (4.30-5.70) Hemoglobin 13.8 g/dL (13.0-17.5) Hematocrit 42.3 % (39.0-53.0) Mean Corpuscular Volume 84 fL (79-100) Mean Corpuscular Hemoglobin 27 pg (25-35) Mean Corpuscular Hemoglobin Concent 33 g/dL (31-37) Red Cell Distribution Width 16.3 % (11.5-14.5) Platelet Count 107 x10^3/uL (140-400) Neutrophils (%) (Auto) 72 % (31-73) Lymphocytes (%) (Auto) 18 % (24-48) Monocytes (%) (Auto) 10 % (0-9) Eosinophils (%) (Auto) 0 % (0-3) Basophils (%) (Auto) 0 % (0-3) Neutrophils # (Auto) 5.9 x10^3/uL (1.8-7.7) Lymphocytes # (Auto) 1.5 x10^3/uL (1.0-4.8) Monocytes # (Auto) 0.8 x10^3/uL (0.0-1.1) Eosinophils # (Auto) 0.0 x10^3/uL (0.0-0.7) Basophils # (Auto) 0.0 x10^3/uL (0.0-0.2) Activated Partial Thromboplast Time 59 SEC (24-38) 61 SEC (24-38) Sodium Level 141 mmol/L (136-145) Potassium Level 3.9 mmol/L (3.5-5.1) Chloride Level 107 mmol/L (98-107) Carbon Dioxide Level 25 mmol/L (21-32) Anion Gap 9 (6-14) Blood Urea Nitrogen 23 mg/dL (8-26) Creatinine 1.7 mg/dL (0.7-1.3) Estimated GFR (Cockcroft-Gault) 39.0 BUN/Creatinine Ratio 14 (6-20) Glucose Level 141 mg/dL (70-99) Calcium Level 9.0 mg/dL (8.5-10.1) Total Bilirubin 0.6 mg/dL (0.2-1.0) Aspartate Amino Transf (AST/SGOT) 36 U/L (15-37) Alanine Aminotransferase (ALT/SGPT) 33 U/L (16-63) Alkaline Phosphatase 79 U/L (46-116) Total Protein 6.4 g/dL (6.4-8.2) Albumin 3.1 g/dL (3.4-5.0) Albumin/Globulin Ratio 0.9 (1.0-1.7) Glucose (Fingerstick) 168 mg/dL (70-99) 170 mg/dL (70-99) Assessment and Plan Assessmemt and Plan Problems Medical Problems: (1) NSTEMI (non-ST elevated myocardial infarction) Status: Acute Assessment/Plan NSTEMI Fall/near syncope Lactic acidosis Hypothermia Acute on chronic renal failure DM2 with hyperglycemia History CVA History NC Plan: During the course of my evaluation repeat troponin 0.716 Consultation placed to cardiology Discussed with Dr. Brand, will obtain CT chest and abdomen; showing some possible pneumonitis otherwise no major acute findings We will place order to have pacemaker interrogated Discussed with DEXTER, she believes he may have gotten overzealous after recently being released from the hospital, tried to walk and had a fall in his correction. She states she is unsure why he is on Eliquis, but she presumes it is for his heart or history of strokes. Will provide judicious IV fluids and monitor kidney function given unknown baseline Follow-up reflex lactic acid, has improved to normal Basal/prandial insulin Resume home medications PT OT FEN - Cardiac diet PPX - Eliquis DNR Dispo - inpatient for above Patient's daughter (Leeanna Martin) is surrogate decision-homero Comment Review of Relevant I have reviewed the following items richard (where applicable) has been applied. Medications: Current Medications Medications (Trade) Dose Ordered Sig/Christal Route PRN Reason Start Time Stop Time Status Last Admin Dose Admin Insulin Glargine (Lantus Syringe) 8 unit QHS SQ 04/24/21 21:00 04/24/21 23:47 Heparin Sodium/ Dextrose 250 ml @ 6 mls/hr CONT PRN IV PER PROTOCOL 04/24/21 16:15 04/24/21 23:45 DC 04/24/21 16:47 Heparin Sodium (Porcine) (Heparin Sodium) 1,250 unit PRN Q6HRS PRN IV FOR UFH LEVEL LESS THAN 0.2 04/24/21 16:15 04/24/21 23:45 DC 04/24/21 16:48 Aspirin (Aspirin Chewable) 81 mg DAILY08 PO 04/25/21 08:00 04/25/21 08:44 Atorvastatin Calcium (Lipitor) 20 mg HS PO 04/24/21 22:00 04/24/21 23:47 Furosemide (Lasix) 20 mg DAILY PO 04/25/21 09:00 04/25/21 08:45 Levothyroxine Sodium (Synthroid) 75 mcg DAILYAC PO 04/25/21 07:30 04/25/21 08:45 Lisinopril (Prinivil) 20 mg DAILY PO 04/25/21 09:00 04/25/21 08:45 Potassium Chloride (Klor-Con) 20 meq DAILY08 PO 04/25/21 08:00 04/25/21 08:45 Carvedilol (Coreg) 37.5 mg BIDWMEALS PO 04/25/21 08:00 04/25/21 08:44 Justifications for Admission General Conditions Other justification for admit: Fall/near syncope, hypothermia, lactic acidosis Other Justification LOIS KELLER MD Apr 25, 2021 14:16
[2021-04-25 14:42] VITALS: BP 103/70
[2021-04-25 16:23] LABS: CHOLESTEROL/HDL RATIO 3.4
[2021-04-25] MEDS: HEPARIN 25,000UTS/250ML PREMIX 250 ML IV PRN (17:25)
[2021-04-25 19:30] VITALS: BP 93/61
[2021-04-25] MEDS: ATORVASTATIN CALCIUM 40 MG TABLET. PO SCH (20:56)
[2021-04-25] MEDS: INSULIN GLARGINE SYRINGE. SQ SCH (21:01)
[2021-04-25 23:10] VITALS: BP 102/57
[2021-04-26 03:00] VITALS: BP 101/60
[2021-04-26 07:00] VITALS: BP 125/72
[2021-04-26] MEDS: ASPIRIN CHEWABLE 81 MG TABLET. PO SCH (09:07)
[2021-04-26] MEDS: POTASSIUM CHLORIDE 20 MEQ TABLET.ER. PO SCH (09:07)
[2021-04-26] MEDS: LEVOTHYROXINE 75 MCG TABLET PO SCH (09:07)
[2021-04-26] MEDS: FUROSEMIDE 20 MG TABLET PO SCH (09:07)
[2021-04-26] MEDS: CARVEDILOL 12.5 MG TABLET. PO SCH ×2 (09:08→18:00)
[2021-04-26] MEDS: LISINOPRIL 20 MG TABLET PO SCH (09:10)
[2021-04-26] MEDS: INSULIN LISPRO 300 UNITS/3 ML VIAL. SQ SCH ×3 (09:19→18:04)
[2021-04-26 09:41] LABS: CALCIUM 8.2 mg/dL (8.5-10.1); CREATININE 1.8 mg/dL (0.7-1.3); GFR 36.5; POTASSIUM 4.4 mmol/L (3.5-5.1)
[2021-04-26 11:00] VITALS: BP 82/51
--- NOTE | 2021-04-26 12:27 | PDOC ---
[employer] PROGRESS NOTE Date of Service DOS: DATE: 04/26/21 TIME: 12:25 Chief Complaint Chief Complaint Assessment Plan NSTEMI Fall/near syncope Lactic acidosis Hypothermia Acute on chronic renal failure DM2 with hyperglycemia History CVA History IA Plan: Consultation placed to cardiology Discussed with Dr. Brand, will obtain CT chest and abdomen; showing some possible pneumonitis otherwise no major acute findings We will place order to have pacemaker interrogated Discussed with DEXTER, she believes he may have gotten overzealous after recently being released from the hospital, tried to walk and had a fall in his [facility]. She states she is unsure why he is on Eliquis, but she presumes it is for his heart or history of strokes. Will provide judicious IV fluids and monitor kidney function given unknown baseline Follow-up reflex lactic acid, has improved to normal Basal/prandial insulin Resume home medications PT OT FEN - Cardiac diet PPX - Eliquis DNR Dispo - inpatient for above Patient's daughter (Leeanna Martin) is surrogate decision-homero History of Present Illness History of Present Illness Patient is a 80-year-old male with past medical history DM2, HTN, history bipolar pacemaker, who presents to the ED after being found unresponsive in the hallway of his [facility]. Patient is deaf and hard of hearing, so much history is obtained through chart review. Upon EMS arrival he was hypothermic at 94.6 F and hypotensive with blood pressure 70/50 mmHg. Upon arrival in the ED there were no obvious injuries or deformities noted. He was treated with warming blankets with improvement. Labs on admission showed platelet 132, BUN 27, creatinine 2.0, CBG 277, lactic acid 4.0, troponin 0.060, BNP 15,364. Patient is on Eliquis and CT head/cervical spine showed no acute abnormality. Chest x-ray and hip x-ray showed apparent cardiomegaly with central vascular congestion, bipolar pacemaker in place, normal alignment of both hip and sacral joints, apparent shortening of the right femoral neck which is perhaps positional, no acute fracture or dislocation. Case was discussed with Dr. Brand in the ED, will obtain CT chest and abdomen given abnormal chest x-ray and history of blood thinner use. Discussed with daughter (DEXTER) who states that patient was recently discharged from to rehab after being treated for episodes of hypoglycemia. He had an ICD/pacemaker placed in 2010. Daughter notes history of "kidney problems ", [place] with no stents, CVA, and she states he is fully vaccinated against COVID-19. She confirms that his CODE STATUS is DNR. Will admit patient for further medical management. 04/25 Evaluated at bedside, appears improved from documentation from yesterday. No longer hypothermic. Lactic acidosis has improved. Blood culture showing 1 of 4 gram-positive cocci in pairs and chains. Suspect contaminant will await further results. Otherwise no major changes. Cards consulted. 04/26 Evaluated at bedside, no major clinical changes. Continue current plan. Cardiology consulted. Vitals/I&O Vitals/I&O: Vital Signs Date Time Temp Pulse Resp B/P (MAP) Pulse Ox O2 Delivery O2 Flow Rate FiO2 04/26/21 11:00 97.2 62 16 82/51 (61) 100 Nasal Cannula 2.0 97.2 I & O 04/25/21 04/25/21 04/26/21 15:00 23:00 07:00 Intake Total 240 ml 515 ml 100 ml Output Total 250 ml 300 ml 350 ml Balance -10 ml 215 ml -250 ml Physical Exam General: Alert, Cooperative, No acute distress Heart: Regular rate Lungs: Clear Abdomen: Soft Extremities: No edema, Normal pulses Skin: No significant lesion Labs Labs: Laboratory Tests Test 04/25/21 13:20 04/25/21 16:29 04/25/21 19:05 04/25/21 20:54 Activated Partial Thromboplast Time 61 SEC (24-38) 109 SEC (24-38) Glucose (Fingerstick) 188 mg/dL (70-99) 165 mg/dL (70-99) Test 04/26/21 04:50 04/26/21 07:45 04/26/21 11:31 Activated Partial Thromboplast Time 107 SEC (24-38) Sodium Level 139 mmol/L (136-145) Potassium Level 4.4 mmol/L (3.5-5.1) Chloride Level 106 mmol/L (98-107) Carbon Dioxide Level 23 mmol/L (21-32) Anion Gap 10 (6-14) Blood Urea Nitrogen 24 mg/dL (8-26) Creatinine 1.8 mg/dL (0.7-1.3) Estimated GFR (Cockcroft-Gault) 36.5 Glucose Level 142 mg/dL (70-99) Calcium Level 8.2 mg/dL (8.5-10.1) Glucose (Fingerstick) 167 mg/dL (70-99) 189 mg/dL (70-99) Assessment and Plan Assessmemt and Plan Problems Medical Problems: (1) NSTEMI (non-ST elevated myocardial infarction) Status: Acute Comment Review of Relevant I have reviewed the following items richard (where applicable) has been applied. Medications: Current Medications Medications (Trade) Dose Ordered Sig/Christal Route PRN Reason Start Time Stop Time Status Last Admin Dose Admin Atorvastatin Calcium (Lipitor) 40 mg QHS PO 04/25/21 21:00 04/25/21 20:56 Justifications for Admission General Conditions Other justification for admit: Fall/near syncope, hypothermia, lactic acidosis Other Justification LOIS KELLER MD Apr 26, 2021 12:27
--- NOTE | 2021-04-26 13:28 | PDOC ---
CARDIO Progress Notes Date and Time Date of Service 04/26/21 Time of Evaluation 1245 Subjective Subjective: No Chest Pain, No shortness of breath, No Palpitations Vitals Vitals Vital Signs Date Time Temp Pulse Resp B/P (MAP) Pulse Ox O2 Delivery O2 Flow Rate FiO2 04/26/21 11:00 97.2 62 16 82/51 (61) 100 Nasal Cannula 2.0 97.2 Weight Weight [ ] Input and Output Intake and Output Intake and Output0 04/26/21 07:00 Intake Total 855 ml Output Total 900 ml Balance -45 ml Intake Oral 680 ml IV Total 175 ml Output Urine Total 900 ml Laboratory Labs Laboratory Tests Test 04/25/21 16:29 04/25/21 19:05 04/25/21 20:54 04/26/21 04:50 Glucose (Fingerstick) 188 mg/dL (70-99) 165 mg/dL (70-99) Activated Partial Thromboplast Time 109 SEC (24-38) 107 SEC (24-38) Sodium Level 139 mmol/L (136-145) Potassium Level 4.4 mmol/L (3.5-5.1) Chloride Level 106 mmol/L (98-107) Carbon Dioxide Level 23 mmol/L (21-32) Anion Gap 10 (6-14) Blood Urea Nitrogen 24 mg/dL (8-26) Creatinine 1.8 mg/dL (0.7-1.3) Estimated GFR (Cockcroft-Gault) 36.5 Glucose Level 142 mg/dL (70-99) Calcium Level 8.2 mg/dL (8.5-10.1) Test 04/26/21 07:45 04/26/21 11:31 Glucose (Fingerstick) 167 mg/dL (70-99) 189 mg/dL (70-99) Microbiology Micro Microbiology 04/24/21 Blood Culture - Preliminary, Resulted NO GROWTH AFTER 2 DAYS Physical Exam HEENT: Neck Supple W Full Motion Chest: Symmetric LUNGS: Clear to Auscultation Heart: RRR Abdomen: Soft N/T Extremities: No Edema Neurology: alert, follow commands, other ([place]) Assessment Assessment 1. Fall; details unclear 2. NSTEMI; trop highest 3.9. CP free 3. Acute on chronic systolic CHF; recent echo with LVEF 35% 4. Cardiomyopathy; s/p AICD (Medtronic). Device interrogation with normal. No AF, VT. Optivol stable. Adequate battery life remaining 5. CAD; cath 2005 with BACK GRAY CLOTH WASHER of RCA and mid LAD. Mid to distal LAD filling via left to left collaterals from the LCx. managed medically. Follows with [facility] 6. Hypertension; controlled 7. Hyperlipidemia; statin 8. H/o CVA 8. Diabetes, II 10. Hypothyroidism; on replacement 11. Thrombocytopenia 12. Lactic acidosis Recommendations Repeat CBC Continue heparin for full 48hrs Limited echo Secondary prevention; ASA, statin, BB HF optimization with Lasix, BB, ACEi Contacted daughterLeeanna. Discussed findings of above including NSTEMI along with treatment options of continuation of medical management versus aggressive measures with left heart catheterization. She would like to continued medical management, which is appropriate given comorbidities and lack of anginal symptoms. Supportive care Justicifation of Admission Dx: Justifications for Admission: Justification of Admission Dx: Yes Comments: NSTEMI CAD DELPHINE JEFFERSON APRN Apr 26, 2021 13:28
[2021-04-26 13:50] LABS: BASO % 1 % (0-3); EOS % 1 % (0-3); HEMATOCRIT 40.1 % (39.0-53.0); HEMOGLOBIN 12.9 g/dL (13.0-17.5); LYMPH # 1.5 x10^3/uL (1.0-4.8); LYMPH % 19 % (24-48); MEAN CORPUSCULAR HEMOGLOBIN 27 pg (25-35); MEAN CORPUSCULAR HGB CONC 32 g/dL (31-37); MEAN CORPUSCULAR VOLUME 84 fL (79-100); MONO % 13 % (0-9); NEUT # 5.5 x10^3/uL (1.8-7.7); NEUT % 67 % (31-73); PLATELET COUNT 92 x10^3/uL (140-400); RED BLOOD COUNT 4.75 x10^6/uL (4.30-5.70); RED CELL DISTRIBUTION WIDTH 15.9 % (11.5-14.5); WHITE BLOOD COUNT 8.1 x10^3/uL (4.0-11.0)
[2021-04-26 15:00] VITALS: BP 116/68
--- NOTE | 2021-04-26 17:12 | CARD ---
MR#: [id number] Date of Study: 04/26/2021 Ordering Physician: DELPHINE JEFFERSON, Referring Physician: DELPHINE JEFFERSON, Tech: Torrey Tillman [facility] APPROVED REPORT EXAM: LIMITED Two-dimensional and M-mode echocardiogram with Doppler and color Doppler. Other Information Quality : GoodHR: 72bpm Rhythm : NSR INDICATION Non STEMI Surgery/Intervention ICD/Pacemaker: RISK FACTORS Hypertension Hyperlipidemia Diabetes Remote OR, Chronic kidney disease. Remote CVA 2D DIMENSIONS Left Atrium(2D)5.0 (1.6-4.0cm)IVSd1.3 (0.7-1.1cm) Aortic Root(2D)3.7 (2.0-3.7cm)LVDd6.5 (3.9-5.9cm) PWd1.3 (0.7-1.1cm)LVDs5.4 (2.5-4.0cm) FS (%) 16.4 %SV72.2 ml LVEF(%)33.6 (>50%) Tricuspid Valve TR P. Lqnmpvoh044en/sTR Peak Gr.60mmHg LEFT VENTRICLE The Left Ventricle is moderately dilated. There is mild concentric left ventricular hypertrophy. The ejection fraction is severely impaired. The Ejection Fraction is 20%. The anterior wall, lateral wall and apex are severely hypokinetic to akinetic. Tissue Doppler imaging reveals severe left ventricula r diastolic dysfunction. No left ventricle thrombus noted on this study. There is no ventricular sept al defect visualized. There is no left ventricular aneurysm. There is no mass noted in the left ventr icle. RIGHT VENTRICLE The right ventricle is normal size. There is normal right ventricular wall thickness. The right ventr icular systolic function is normal. Pacemaker/ICD lead noted in the right ventricle. ATRIA The left atrium is mildly dilated. The right atrium size is normal. The interatrial septum is intact with no evidence for an atrial septal defect or patent foramen ovale as noted on 2-D or Doppler imagi ng. AORTIC VALVE The aortic valve is heavily calcified with mildly restricted leaflet motion. Doppler and Color Flow revealed no significant aortic regurgitation. There is no significant aortic valvular stenosis. There is no aortic valvular vegetation. MITRAL VALVE The mitral valve is thickened but opens well. Mitral annular calcification is moderate to severe. The mitral valve leaflets are thickened. There is no evidence of mitral valve prolapse. There is no mitr al valve stenosis. Doppler and Color-flow revealed moderate mitral regurgitation. TRICUSPID VALVE The tricuspid valve is normal in structure and function. Doppler and Color Flow revealed mild tricusp id regurgitation. The PA pressure was estimated at 70 mmHg. There is no tricuspid valve prolapse or v egetation. There is no tricuspid valve stenosis. PULMONIC VALVE There is mild pulmonic regurgitation. There is no pulmonic valvular stenosis. GREAT VESSELS The aortic root is normal in size. The ascending aorta is normal in size. The IVC is dilated with ruy nted inspiratory response. PERICARDIAL EFFUSION There is no pleural effusion. There is no evidence of significant pericardial effusion. <Conclusion> The ejection fraction is severely impaired. The Ejection Fraction is 20%. The anterior wall, lateral wall and apex are severely hypokinetic to akinetic. Pacemaker/ICD lead noted in the right ventricle. Doppler and Color-flow revealed moderate mitral regurgitation. Doppler and Color Flow revealed mild tricuspid regurgitation. The PA pressure was estimated at 70 mmH g. Signed by : Juan Chung, Electronically Approved : 04/26/2021 17:12:15
[2021-04-26] MEDS: ATORVASTATIN CALCIUM 40 MG TABLET. PO SCH (19:25)
[2021-04-26 19:30] VITALS: BP 92/59
[2021-04-26] MEDS: INSULIN GLARGINE SYRINGE. SQ SCH (19:38)
[2021-04-26] MEDS: HEPARIN 25,000UTS/250ML PREMIX 250 ML IV PRN (19:59)
[2021-04-26 22:55] VITALS: BP 99/62
[2021-04-27 03:30] VITALS: BP 113/70
[2021-04-27 04:41] LABS: HEMATOCRIT 40.6 % (39.0-53.0); HEMOGLOBIN 13.3 g/dL (13.0-17.5); RED BLOOD COUNT 4.87 x10^6/uL (4.30-5.70); RED CELL DISTRIBUTION WIDTH 15.9 % (11.5-14.5); WHITE BLOOD COUNT 9.9 x10^3/uL (4.0-11.0)
[2021-04-27 07:00] VITALS: BP 115/70
[2021-04-27] MEDS: INSULIN LISPRO 300 UNITS/3 ML VIAL. SQ SCH ×2 (07:51→12:00)
[2021-04-27] MEDS: LISINOPRIL 20 MG TABLET PO SCH (09:40)
[2021-04-27] MEDS: FUROSEMIDE 20 MG TABLET PO SCH (09:40)
[2021-04-27] MEDS: LEVOTHYROXINE 75 MCG TABLET PO SCH (09:40)
[2021-04-27] MEDS: CARVEDILOL 12.5 MG TABLET. PO SCH (09:41)
[2021-04-27] MEDS: ASPIRIN CHEWABLE 81 MG TABLET. PO SCH (09:41)
[2021-04-27] MEDS: POTASSIUM CHLORIDE 20 MEQ TABLET.ER. PO SCH (09:41)
[2021-04-27 11:00] VITALS: BP 108/67
--- NOTE | 2021-04-27 12:23 | PDOC ---
DELPHINE JEFFERSON BINDERY MACHINE OPERATOR 04/27/21 1223: CARDIO Progress Notes Date and Time Date of Service 04/27/21 Time of Evaluation 1220 Subjective Subjective: No Chest Pain, No shortness of breath, No Palpitations Vitals Vitals Vital Signs Date Time Temp Pulse Resp B/P (MAP) Pulse Ox O2 Delivery O2 Flow Rate FiO2 04/27/21 11:00 97.6 79 16 108/67 (81) 94 Nasal Cannula 2.0 97.6 Weight Weight [ ] Input and Output Intake and Output Intake and Output 04/27/21 07:00 Intake Total 1115 ml Output Total 1300 ml Balance -185 ml Intake Oral 865 ml IV Total 250 ml Output Urine Total 1300 ml Laboratory Labs Laboratory Tests Test 04/26/21 17:43 04/26/21 19:33 04/27/21 04:20 04/27/21 07:49 Glucose (Fingerstick) 183 mg/dL (70-99) 167 mg/dL (70-99) 135 mg/dL (70-99) White Blood Count 9.9 x10^3/uL (4.0-11.0) Red Blood Count 4.87 x10^6/uL (4.30-5.70) Hemoglobin 13.3 g/dL (13.0-17.5) Hematocrit 40.6 % (39.0-53.0) Mean Corpuscular Volume 84 fL (79-100) Mean Corpuscular Hemoglobin 27 pg (25-35) Mean Corpuscular Hemoglobin Concent 33 g/dL (31-37) Red Cell Distribution Width 15.9 % (11.5-14.5) Platelet Count 85 x10^3/uL (140-400) Activated Partial Thromboplast Time 105 SEC (24-38) Test 04/27/21 11:49 Glucose (Fingerstick) 135 mg/dL (70-99) Microbiology Micro Microbiology 04/24/21 Blood Culture - Preliminary, Resulted NO GROWTH AFTER 3 DAYS Physical Exam HEENT: Neck Supple W Full Motion Chest: Symmetric LUNGS: Clear to Auscultation Heart: RRR Abdomen: Soft N/T Extremities: No Edema Neurology: alert, follow commands, other ([place]) Assessment Assessment 1. Fall; details unclear 2. NSTEMI; trop highest 3.9. CP free 3. Acute on chronic systolic CHF; recent echo with LVEF 35%. Limited echo with LVEF 20%. The anterior wall, lateral wall and apex are severely hypokinetic to akinetic. 4. Cardiomyopathy; s/p AICD (Medtronic). Device interrogation with normal. No AF, VT. Optivol stable. Adequate battery life remaining 5. CAD; cath 2005 with EXECUTIVE SALES ASSISTANT of RCA and mid LAD. Mid to distal LAD filling via left to left collaterals from the LCx. managed medically. Follows with MAC 6. Hypertension; controlled 7. Hyperlipidemia; statin 8. H/o CVA 8. Diabetes, II 10. Hypothyroidism; on replacement 11. Thrombocytopenia 12. Lactic acidosis Recommendations Discontinue heparin gtt Secondary prevention; ASA, statin, BB HF optimization with Lasix, BB, ACEi Continued medical management as per family request Supportive care Follow up with primary senior clerk upon discharge Justicifation of Admission Dx: Justifications for Admission: Justification of Admission Dx: Yes NICK MEJIA MD 04/27/21 6643: CARDIO Progress Notes Assessment Assessment Patient seen and examined I agree with our nurse practitioners assessment and plan. NSTEMI; trop highest 3.9. CP free. Continuing medical treatment. Acute on chronic systolic CHF; recent echo with LVEF 35%. Limited echo with LVEF 20%. The anterior wall, lateral wall and apex are severely hypokinetic to akinetic. Cardiomyopathy; s/p AICD (Medtronic). Device interrogation with normal. No AF, VT. Optivol stable. Adequate battery life remaining CAD; cath 2005 with EXECUTIVE SALES ASSISTANT of RCA and mid LAD. Mid to distal LAD filling via left to left collaterals from the LCx. managed medically. Follows with MAC Hypertension; controlled Hyperlipidemia; statin H/o CVA Diabetes DELPHINE JEFFERSON APRN Apr 27, 2021 12:23 NICK MEJIA MD Apr 27, 2021 17:57
[2021-04-27] MEDS ORDERED: ATOR40TA59 PO (12:47)
--- NOTE | 2021-04-27 12:49 | SNU/HH DC ---
DISCHARGE WITH HOME HEALTH DISCHARGE INFORMATION: Discharge Date: Apr 27, 2021 Final Diagnosis: Problems Medical Problems: (1) NSTEMI (non-ST elevated myocardial infarction) Status: Acute Condition on Discharge: Stable CODE STATUS: Code Status: DNR/DNI HOME HEALTH: Face to Face: I certify this patient is under my care and that I, or a nurse practitioner or physician's assistant professor of music working with me, had a face to face encounter that meets the physician face to face encounter requirements with this patient on []. Halfway For: Assess Cardiopulm Status, Assess & Educate Safety, Assess/Skilled Observatio RN For Eval/Treatment: Yes Physical Therapy For: Evalulation/Treatment Occupational Therapy For: Evaluation/Treatment Pt Meets Homebound Status: Unsteady balance w/ amb,, Extreme weakness w/ amb., Limited distance walking POST DISCHARGE ORDERS: Activity Instructions for Disc: Activity as tolerated Weight Bearing Status after Di: As tolerated DIET AFTER DISCHARGE: Cardiac Wound/Incision Care: Keep wound/cast CDI CHECKS AFTER DISCHARGE: Checks after discharge: Check blood press - daily, Check your Temp as needed TREATMENT/EQUIPMENT ORDERS: Adaptive Equipment Issued: Walker CERTIFICATION STATEMENT: Certification Statement: Certification Statement: Based on the above finding, I certify that this patient is confined to the home and needs intermittent correction care, physical therapy and/or speech therapy, or continues to need occupational therapy.~ This patient is under my care, and I have initiated the establishment of the plan of care.~ This patient will be followed by myself or a community physician who will periodically review the plan of care. Home Meds Reported Medications Insulin Aspart (NOVOLOG FLEXPEN) 100 Unit/1 Ml Insuln.pen, 8 UNIT SQ TIDWMEALS for DM, SYR 04/24/21 Insulin Detemir (Levemir Flextouch) 100 Unit/1 Ml Insuln.pen, 8 UNIT SQ HS for DM, SYR 04/24/21 [Vitamin D] No Conflict Check, 62531 UNITS PO WEEKLY every week on Sunday for supplement 04/24/21 Liraglutide (VICTOZA 3-ZOE) 0.6 Mg/0.1 Ml Pen.injctr, 1.8 MG SQ DAILY for DM, #9 ML 3 Refills 04/24/21 Potassium Chloride (POTASSIUM CHLORIDE ) 20 Meq Tablet.er, 20 MEQ PO DAILY for SUPPLEMENT, TAB.SR 04/24/21 Lisinopril (LISINOPRIL) 20 Mg Tablet, 20 MG PO DAILY for FOR HYPERTENSION, #30 TAB 0 Refills 04/24/21 Levothyroxine Sodium (LEVOTHYROXINE SODIUM) 75 Mcg Tablet, 75 MCG PO DAILYAC for THYROID SUPPLEMENT, #30 TAB 0 Refills 04/24/21 Furosemide (FUROSEMIDE) 20 Mg Tablet, 20 MG PO DAILY for CHF, TAB 04/24/21 Apixaban (ELIQUIS) 2.5 Mg Tablet, 2.5 MG PO BID for A-Fib, TAB 04/24/21 Carvedilol (COREG) 25 Mg Tablet, 37.5 MG PO BIDWMEALS for CARDIAC, TAB 04/24/21 Atorvastatin Calcium (ATORVASTATIN CALCIUM) 20 Mg Tablet, 20 MG PO HS for FOR CHOLESTEROL, #30 TAB 0 Refills 04/24/21 Aspirin (ASPIRIN) 81 Mg Tab.chew, 81 MG PO DAILY for heart healthy, TAB.CHEW 04/24/21 LOIS KELLER MD Apr 27, 2021 12:49
--- NOTE | 2021-04-27 13:08 | PDOC3 ---
[facility]-Discharge Summary Date of Admission: Date of Admission: Apr 24, 2021 Date of Discharge: Date of Discharge: Apr 27, 2021 Admission Diagnosis: Problems: (1) NSTEMI (non-ST elevated myocardial infarction) (2) Fall (3) Hypothermia (4) Lactic acidosis Discharge Diagnosis: Discharge Diagnosis: Same Consults: Consults: Cardiology Hospital Course: Hospital Course: Chief Complaint Chief Complaint Assessment Plan NSTEMI Fall/near syncope Lactic acidosis Hypothermia Acute on chronic renal failure DM2 with hyperglycemia History CVA History [place] Plan: Consultation placed to cardiology Discussed with Dr. Brand, will obtain CT chest and abdomen; showing some possible pneumonitis otherwise no major acute findings We will place order to have pacemaker interrogated Discussed with DEXTER, she believes he may have gotten overzealous after recently being released from the hospital, tried to walk and had a fall in his skilled nursing. She states she is unsure why he is on Eliquis, but she presumes it is for his heart or history of strokes. Will provide judicious IV fluids and monitor kidney function given unknown baseline Follow-up reflex lactic acid, has improved to normal Basal/prandial insulin Resume home medications PT OT FEN - Cardiac diet PPX - Eliquis DNR Dispo - inpatient for above Patient's daughter (Leeanna Martin) is surrogate decision-homero History of Present Illness History of Present Illness Patient is a 80-year-old male with past medical history DM2, HTN, history bipolar pacemaker, who presents to the ED after being found unresponsive in the hallway of his [facility]. Patient is deaf and hard of hearing, so much history is obtained through chart review. Upon EMS arrival he was hypothermic at 94.6 F and hypotensive with blood pressure 70/50 mmHg. Upon arrival in the ED there were no obvious injuries or deformities noted. He was treated with warming blankets with improvement. Labs on admission showed platelet 132, BUN 27, creatinine 2.0, CBG 277, lactic acid 4.0, troponin 0.060, BNP 15,364. Patient is on Eliquis and CT head/cervical spine showed no acute abnormality. Chest x-ray and hip x-ray showed apparent cardiomegaly with central vascular congestion, bipolar pacemaker in place, normal alignment of both hip and sacral joints, apparent shortening of the right femoral neck which is perhaps positional, no acute fracture or dislocation. Case was discussed with Dr. Brand in the ED, will obtain CT chest and abdomen given abnormal chest x-ray and history of blood thinner use. Discussed with daughter (DEXTER) who states that patient was recently discharged from to rehab after being treated for episodes of hypoglycemia. He had an ICD/pacemaker placed in 2010. Daughter notes history of "kidney problems ", [place] with no stents, CVA, and she states he is fully vaccinated against COVID-19. She confirms that his CODE STATUS is DNR. Will admit patient for further medical management. 04/25 Evaluated at bedside, appears improved from documentation from yesterday. No longer hypothermic. Lactic acidosis has improved. Blood culture showing 1 of 4 gram-positive cocci in pairs and chains. Suspect contaminant will await further results. Otherwise no major changes. Cards consulted. 04/26 Evaluated at bedside, no major clinical changes. Continue current plan. Cardiology consulted. 04/27 Patient evaluated and examined at bedside. He was doing well without complaint. Appears discharge ready. Confirmed cardiology they are okay with discharge. Follow-up with his PCP. 35 minutes coordinating and [id number] discussing discharge with this patient. Disposition: Disposition/Orders: D/C to Home w/ HH Activity: Activity: Resume previous activity Diet: Diet: Cardiac Medications: Home Meds Active Scripts Atorvastatin Calcium (ATORVASTATIN CALCIUM) 40 Mg Tablet, 40 MG PO QHS for cad for 90 Days, #90 TAB Prov:LOIS KELLER MD 04/27/21 Reported Medications Insulin Aspart (NOVOLOG FLEXPEN) 100 Unit/1 Ml Insuln.pen, 8 UNIT SQ TIDWMEALS for DM, SYR 04/24/21 Insulin Detemir (Levemir Flextouch) 100 Unit/1 Ml Insuln.pen, 8 UNIT SQ HS for DM, SYR 04/24/21 [Vitamin D] No Conflict Check, 23885 UNITS PO WEEKLY every week on Sunday for supplement 04/24/21 Liraglutide (VICTOZA 3-SATNAM) 0.6 Mg/0.1 Ml Pen.injctr, 1.8 MG SQ DAILY for DM, #9 ML 3 Refills 04/24/21 Potassium Chloride (POTASSIUM CHLORIDE ) 20 Meq Tablet.er, 20 MEQ PO DAILY for SUPPLEMENT, TAB.SR 04/24/21 Lisinopril (LISINOPRIL) 20 Mg Tablet, 20 MG PO DAILY for FOR HYPERTENSION, #30 TAB 0 Refills 04/24/21 Levothyroxine Sodium (LEVOTHYROXINE SODIUM) 75 Mcg Tablet, 75 MCG PO DAILYAC for THYROID SUPPLEMENT, #30 TAB 0 Refills 04/24/21 Furosemide (FUROSEMIDE) 20 Mg Tablet, 20 MG PO DAILY for CHF, TAB 04/24/21 Apixaban (ELIQUIS) 2.5 Mg Tablet, 2.5 MG PO BID for A-Fib, TAB 04/24/21 Carvedilol (COREG) 25 Mg Tablet, 37.5 MG PO BIDWMEALS for CARDIAC, TAB 04/24/21 Aspirin (ASPIRIN) 81 Mg Tab.chew, 81 MG PO DAILY for heart healthy, TAB.CHEW 04/24/21 Discontinued Reported Medications Atorvastatin Calcium (ATORVASTATIN CALCIUM) 20 Mg Tablet, 20 MG PO HS for FOR CHOLESTEROL, #30 TAB 0 Refills 04/24/21 Scheduled Apixaban (Eliquis), 2.5 MG PO BID, (Reported) Aspirin (Aspirin), 81 MG PO DAILY, (Reported) Atorvastatin Calcium (Atorvastatin Calcium), 40 MG PO QHS Carvedilol (Coreg), 37.5 MG PO BIDWMEALS, (Reported) Furosemide (Furosemide), 20 MG PO DAILY, (Reported) Insulin Aspart (Novolog Flexpen), 8 UNIT SQ TIDWMEALS, (Reported) Insulin Detemir (Levemir Flextouch), 8 UNIT SQ HS, (Reported) Levothyroxine Sodium (Levothyroxine Sodium), 75 MCG PO DAILYAC, (Reported) Liraglutide (Victoza 3-Satnam), 1.8 MG SQ DAILY, (Reported) Lisinopril (Lisinopril), 20 MG PO DAILY, (Reported) Potassium Chloride (Potassium Chloride ), 20 MEQ PO DAILY, (Reported) [Vitamin D], 50,000 UNITS PO WEEKLY, (Reported) Discontinued Medications Atorvastatin Calcium (Atorvastatin Calcium), 20 MG PO HS, (Reported) Justicifation of Admission Dx: Justifications for Admission: Justification of Admission Dx: Yes LOIS KELLER MD Apr 27, 2021 13:08
--- NOTE | 2021-04-27 13:57 | NUR ---
SS discussed with Talent Development Manager, Niecy. Discharge orders received for return to [facility], ; fax [phone], with home healthcare. Assistance with discharge requested. SS phoned and faxed clinical and discharge orders to [facility]. SS discussed with DEXTER, Veronica Durán, , and discussed discharge planning. Pt was previously on services with [facility], ; fax [phone]. Leeanna requesting assistance with transportation back to facility. SS phoned and faxed discharge orders and referral to [facility]. Pt will discharge today and return to [facility] between 1600 and 1630 via [facility], . Adele at [facility] notified. Packet placed on chart. Pt's RN notified.
[2021-04-27 15:00] VITALS: BP 114/72
--- NOTE | 2021-04-27 20:06 | NUR ---
Patient was walking around in his room waiting on transportation to take him back to his senior living at approximately 1730 when the patient collapsed into [facility]'s arms. Patient was slowly brought to the ground and a rapid response called. At this time, this RN notified Leeanna Martin (dtr). We were unable to get an O2sat on him due to cold hands, couldn't get a blood pressure, and pulse was very weak. Daniel BARNARD and Yenifer (Nursing Sup) arrived at approximately 1735 when patient became unresponsive to stimuli. At this time patient was agonal breathing. Patient was pronounced at 1740 by two RN's (Chema BARNARD and Erica, RN). Dr Bauman notified at [address] Tello at 1800. [place] notified at 1825 and patient is eligible for tissue donation. Saline irrigant to each eyes and ice packs placed. home will be Directors
== END 2021-04-27 17:40 ==
LOC: ER 06:24 → ED HOLD 08:00 → 6 SOUTH 09:35
PROVIDERS: ADMIT Family Medicine; ATTEND Family Medicine
PROC: 4B02XSZ Measurement of Cardiac Pacemaker, External Approach (ICD-10-PCS; principal; 2021-04-26)
DX: I21.4 Non-ST elevation (NSTEMI) myocardial infarction (principal); I50.23 Acute on chronic systolic (congestive) heart failure; N17.9 Acute kidney failure, unspecified; I13.0 Hypertensive heart and chronic kidney disease with heart failure and stage 1 through stage 4 chronic kidney disease, or unspecified chronic kidney disease; I42.9 Cardiomyopathy, unspecified; D69.6 Thrombocytopenia, unspecified; E03.9 Hypothyroidism, unspecified; E11.22 Type 2 diabetes mellitus with diabetic chronic kidney disease; E11.65 Type 2 diabetes mellitus with hyperglycemia; E78.5 Hyperlipidemia, unspecified; G31.9 Degenerative disease of nervous system, unspecified; H91.90 Unspecified hearing loss, unspecified ear; I25.10 Atherosclerotic heart disease of native coronary artery without angina pectoris; I25.2 Old myocardial infarction; I48.91 Unspecified atrial fibrillation; M25.78 Osteophyte, vertebrae; M50.90 Cervical disc disorder, unspecified, unspecified cervical region; N18.9 Chronic kidney disease, unspecified; Z66 Do not resuscitate; Z79.01 Long term (current) use of anticoagulants; Z82.49 Family history of ischemic heart disease and other diseases of the circulatory system; Z86.73 Personal history of transient ischemic attack (TIA), and cerebral infarction without residual deficits; Z95.810 Presence of automatic (implantable) cardiac defibrillator; W18.39XA Other fall on same level, initial encounter; Y93.89 Activity, other specified; Y92.89 Other specified places as the place of occurrence of the external cause; Y99.8 Other external cause status
CPT/HCPCS: 36415; 70450; 71045; 71250; 72125; 72170; 74176; 80048; 80053; 80061; 82550; 82962; 83605; 83735; 83874; 83880; 84100; 84443; 84484; 85025; 85027; 85610; 85730; 87040; 87077; 87205; 87426; 93005; 93308; 94618; 96361; 96374; J1644; J1815; J2405; J7030; U0003; U0005; 97535-GO; 99285-25; G0378